=== PATIENT | male | born 1960 | race Caucasian/White ===

== ENCOUNTER 2017-04-24 11:09 | Emergency (ER) | payer MEDICAID ==
[~2017-04-24] VITALS: Ht 182.9 cm; Wt 56.7 kg
[2017-04-24] MEDS ORDERED: XANAX0.5 MG PO (11:40)
[2017-04-24] MEDS ORDERED: ACIDOPHILUS1 CAP PO (11:40)
[2017-04-24] MEDS ORDERED: AVODART0.5 MG PO (11:41)
[2017-04-24] MEDS ORDERED: ARICEPT10 MG PO (11:41)
[2017-04-24] MEDS ORDERED: FLOMAX0.4 MG PO (11:42)
[2017-04-24] MEDS ORDERED: LINZESS145 MCG PO (11:42)
[2017-04-24] MEDS ORDERED: PRINIVIL5 MG PO (11:43)
[2017-04-24] MEDS ORDERED: PRILOSEC20 MG PO (11:43)
[2017-04-24] MEDS ORDERED: LIORESAL10 MG PO (11:44)
[2017-04-24] MEDS ORDERED: XANAX1 MG PO (11:44)
[2017-04-24] MEDS ORDERED: ZYPREXA10 MG PO (11:45)
[2017-04-24] MEDS ORDERED: SYMBICORT 160-4.6 GM INH (11:46)
[2017-04-24] MEDS ORDERED: TYLENOL325 MG PO (11:47)
[2017-04-24] MEDS ORDERED: PROVENTIL2.5 MG/3 M INH (11:48)
[2017-04-24] MEDS ORDERED: TRAMADOL HCL50 MG PO (11:49)
== END 2017-04-24 13:40 | disposition short-term general hospital (02) ==
LOC: ER 11:09
DX: R55 Syncope and collapse (principal); F25.9 Schizoaffective disorder, unspecified; J44.9 Chronic obstructive pulmonary disease, unspecified; Z87.820 Personal history of traumatic brain injury